=== PATIENT | male | born 1960 | race Caucasian/White ===

== ENCOUNTER → 2017-11-07 | Outpatient (CLI) | payer BC ==
--- NOTE | 2017-11-07 13:05 | XR ---
EXAMINATION TYPE: XR lumbosacral spine min 4V DATE OF EXAM: 11/07/2017 CLINICAL HISTORY: Low back pain. TECHNIQUE: Frontal, lateral, and oblique images of the lumbar spine are obtained. COMPARISON: Prior MRI lumbar spine March 13, 2012 FINDINGS: There are 5 lumbar type vertebral bodies identified. The lumbar spine now show spondyloli sthesis of L5 on S1. Estimated grade 2 anterolisthesis measuring roughly 13 mm lung posterior verteb ral body margin Vertebral body heights and remain within normal limits. There is now moderate disc s pace narrowing L5-S1 level more prominent than prior. Pars defects likely present are not well visual ized on oblique images. Facet arthropathy lower lumbar levels is seen. The overlying soft tissue christine ears unremarkable. IMPRESSION: New spondylolisthesis lumbosacral junction with increasing degenerative change at this le willie noted.
== END | disposition home or self-care (01) ==
LOC: RADXRMAIN 12:22
PROVIDERS: ATTEND Family Medicine
DX: M43.17 Spondylolisthesis, lumbosacral region (principal); M47.817 Spondylosis without myelopathy or radiculopathy, lumbosacral region
CPT/HCPCS: 72110

== ENCOUNTER → 2018-01-18 | Outpatient (CLI) | payer BC ==
--- NOTE | 2018-01-19 11:49 | MR ---
EXAMINATION TYPE: MR lumbar spine wo con DATE OF EXAM: 01/18/2018 COMPARISON: Plain film 11/07/2017 Prior lumbar MRI 03/13/2012 HISTORY: LBP, LLE radic since 2011, no hx of trauma/surgery TECHNIQUE: Multiplanar, multisequence images of the lumbar spine were acquired. L1-L2: Normal disc appearance without desiccation. No herniation, protrusion or disc bulging. No ca nal stenosis is present. Foramina are patent bilaterally. L2-L3: Normal disc appearance without desiccation. No herniation, protrusion or disc bulging. No ca nal stenosis is present. Foramina are patent bilaterally. L3-L4: Posterior broad-based disc bulge causes minimal anterior mass effect on the thecal sac. Facet arthropathy encroaches on the lateral recesses with hypertrophy ligamentum flavum. No significant for aminal encroachment or central canal stenosis. L4-L5: Loss of disc height and signal is present, minimal posterior broad-based disc bulge causes sli ght anterior mass effect on the thecal sac. No significant central canal stenosis or foraminal encroa chment. Vacuum phenomenon present. L5-S1: Anterolisthesis is again noted grade 1 to grade 2, this contributes to cause bilateral foramin al encroachment. There is associated facet arthropathy encroaching on the lateral recesses. No sizabl e disc herniation. Loss of disc height and signal is present with associated vacuum phenomenon. Endpl ate discogenic marrow signal change. Lumbar segments are intact. No paraspinal masses are identified. Conus medullaris has a normal appe arance. There is a mild spinal curvature. Suspect there is bilateral spondylolysis at L5. IMPRESSION: Suspect spondylolysis at L5 with spondylolisthesis which is progressed compared to prior MRI, there a re degenerative disc changes, foraminal encroachment greatest at L5-S1.
== END | disposition home or self-care (01) ==
LOC: RADMRIMAIN 17:33
PROVIDERS: ATTEND Family Medicine
DX: M43.16 Spondylolisthesis, lumbar region (principal); M47.817 Spondylosis without myelopathy or radiculopathy, lumbosacral region
CPT/HCPCS: 72148

== ENCOUNTER → 2024-05-24 | Outpatient (CLI) | payer BC ==
[2024-05-24 19:22] LABS: Basophils # (A) 0.06 X 10*3/uL (0.00-0.10); Basophils % (A) 0.6 %; Eosinophils # (A) 0.16 X 10*3/uL (0.04-0.35); Eosinophils % (A) 1.6 %; HCT 50.8 % (39.6-50.0); HGB 17.4 g/dL (13.0-17.0); Lymphocytes # (A) 2.73 X 10*3/uL (0.90-5.00); MCH 30.5 pg (27.0-32.0); MCHC 34.3 g/dL (32.0-37.0); Mean Platelet Volume 11.1 FL (9.5-12.2); Monocytes # (A) 0.81 X 10*3/uL (0.20-1.00); Monocytes % (A) 8.3 %; NRBC Per 100 WBC 0 X 10*3/uL (0.00-0.01); Neutrophils # (A) 5.97 X 10*3/uL (1.80-7.70); Neutrophils % (A) 61.2 %; Platelet Count 215 X 10*3/uL (140-440); RBC 5.71 X 10*6/uL (4.40-5.60); RDW 12.7 % (11.5-14.5); WBC 9.76 X 10*3/uL (4.50-10.00)
[2024-05-24 19:58] LABS: ALT 14 U/L (10-49); AST 18 U/L (14-35); Albumin 4.7 g/dL (3.8-4.9); Albumin/Globulin Ratio 1.88 Ratio (1.60-3.17); Alkaline Phosphatase 64 U/L (41-126); BUN/Creat Ratio 13.88 Ratio (12.00-20.00); Blood Urea Nitrogen 11.1 mg/dL (9.0-27.0); Calcium 9.6 mg/dL (8.7-10.3); Carbon Dioxide 25.7 mmol/L (21.6-31.8); Chloride 104 mmol/L (96-109); Chol/HDL Ratio 4.55 Ratio; Globulin 2.5 g/dL (1.6-3.3); Glucose 108 mg/dL (70-110); LDL Cholesterol,Calculated 149.2 mg/dL (0.0-131.0); Prostate Specific Antigen 5.52 ng/mL (0.000-4.500); Sodium 141 mmol/L (135-145); Total Bilirubin 0.5 mg/dL (0.3-1.2); Total Protein 7.2 g/dL (6.2-8.2)
== END | disposition home or self-care (01) ==
LOC: LABWHC1 16:29
PROVIDERS: ATTEND Family Medicine
DX: Z00.00 Encounter for general adult medical examination without abnormal findings (principal); Z12.5 Encounter for screening for malignant neoplasm of prostate; I10 Essential (primary) hypertension; E78.2 Mixed hyperlipidemia; M54.50 Low back pain, unspecified; Z87.891 Personal history of nicotine dependence
CPT/HCPCS: 36415; 80053; 80061; 84153; 84443; 85025